=== PATIENT | male | born 1960 | race Caucasian/White ===

== ENCOUNTER 2018-08-06 07:53 | Day surgery (SDC) | payer OTHER ==
[~2018-08-06] VITALS: Ht 180.3 cm; Wt 132.1 kg
[~2018-08-06 07:53] MED LIST: ALBU90OI6; ALBU90OI61 INH; ASPI81CH; ATOR10 PO; ATOR20; Azor 5-40 MG T1 EACH PO; BENAML20/5; BRINTELLIX10 MG; BRINTELLIX10 MG PO; DAILY MULTIPLE1 EACH; DIFLORASONE DIA; DIFLORASONE DIA TOP; HYDR25SUP PR; LO-DOSE ASPIRIN81 MG PO; LOTREL; MULTI-DAY PLUS1 EAC1 PO; Norco 7.5-3251 EACH; TAMS.4ER; TAMS.4ER PO; VENL75
== END 2018-08-06 09:35 | disposition home or self-care (01) ==
LOC: ORSCSDS 07:53
PROVIDERS: Surgery
PROC: 0DBM8ZX Excision of Descending Colon, Via Natural or Artificial Opening Endoscopic, Diagnostic (ICD-10-PCS; principal; 2018-08-06 09:15)
DX: Z12.11 Encounter for screening for malignant neoplasm of colon (principal); D12.4 Benign neoplasm of descending colon; K57.30 Diverticulosis of large intestine without perforation or abscess without bleeding; Z86.010 Personal history of colon polyps; I10 Essential (primary) hypertension; E78.5 Hyperlipidemia, unspecified; F41.8 Other specified anxiety disorders; Z79.82 Long term (current) use of aspirin; Z79.899 Other long term (current) drug therapy
CPT/HCPCS: 88305; J2704; J7120

== ENCOUNTER 2024-06-24 09:41 | Day surgery (SDC) | payer OTHER ==
[~2024-06-24] VITALS: Ht 182.9 cm; Wt 128.2 kg
[~2024-06-24 09:41] MED LIST changes: +Lactated Ringer's 1,000 ML IV ONE; +propofoL 50 ML IV ONE
[2024-06-24] MEDS ORDERED: Lactated Ringer's 1,000 ML IV ONE (11:30)
[2024-06-24 12:26] VITALS: BP 140/95
== END 2024-06-24 12:22 | disposition home or self-care (01) ==
LOC: ORSCSDS 09:41
PROVIDERS: Surgery
PROC: 0DBM8ZX Excision of Descending Colon, Via Natural or Artificial Opening Endoscopic, Diagnostic (ICD-10-PCS; principal; 2024-06-24 11:15)
DX: Z12.11 Encounter for screening for malignant neoplasm of colon (principal); Z86.0100 Personal history of colon polyps, unspecified; K63.5 Polyp of colon; Z80.0 Family history of malignant neoplasm of digestive organs; Z90.49 Acquired absence of other specified parts of digestive tract; K64.8 Other hemorrhoids; K57.30 Diverticulosis of large intestine without perforation or abscess without bleeding; I10 Essential (primary) hypertension; E78.5 Hyperlipidemia, unspecified; E66.9 Obesity, unspecified; Z68.39 Body mass index [BMI] 39.0-39.9, adult; Z87.891 Personal history of nicotine dependence; Z79.899 Other long term (current) drug therapy
CPT/HCPCS: 88305; J2704; J7120